=== PATIENT | male | born 1940 | race Hispanic/Latino ===

== ENCOUNTER → 2019-07-19 | Outpatient (CLI) | payer OTHER ==
[~2019-07-19] MED LIST: ASPI-1005 PO; LISI2.5T2 PO; METO25 PO; PRAV40TA3 PO; SIMV-43 PO
== END | disposition home or self-care (01) ==
LOC: RAH 10:43
PROVIDERS: ATTEND Internal Medicine Cardiovascular Disease
DX: I05.9 Rheumatic mitral valve disease, unspecified (principal); R01.1 Cardiac murmur, unspecified; R50.82 Postprocedural fever; Z95.2 Presence of prosthetic heart valve
CPT/HCPCS: 36415; 87040; 93306; 93356

== ENCOUNTER 2019-11-29 04:50 | Observation (INO) | payer OTHER ==
[2019-11-29] MEDS ORDERED: ASPIRIN 325 MG TABLET ONE (04:54)
[2019-11-29] MEDS ORDERED: NITROGLYCERIN 1GM/1 INCH PACKET TD ONE (05:08)
[2019-11-29 05:14] LABS: BASOPHILS % (AUTO) 0.5 % (0.0-5.0); EOSINOPHILS % (AUTO) 2.5 % (0.0-8.0); HEMATOCRIT 44.7 % (42-54); LYMPHOCYTES % (AUTO) 19.5 % (21.0-51.0); MEAN CORPUSCULAR HEMOGLOBIN 29.3 pg (27.0-33.0); MEAN CORPUSCULAR HGB CONC 32.7 g/dL (32.0-36.0); MEAN CORPUSCULAR VOLUME 89.6 fL (79-99); MONOCYTES % (AUTO) 9.3 % (3.0-13.0); NEUTROPHILS % (AUTO) 67.8 % (40.0-77.0); PLATELET COUNT (AUTO) 164 K/uL (130-400); RED BLOOD CELL COUNT(AUTO) 4.99 MIL/uL (4.50-6.20); RED CELL DISTRIBUTION WIDTH 13.7 % (11.0-15.5); WHITE BLOOD COUNT (AUTO) 8.5 K/uL (4.8-10.8)
[2019-11-29 05:29] LABS: CREATININE 1.3 mg/dL (0.5-1.5); POTASSIUM 3.6 mmol/L (3.5-5.1)
[2019-11-29] MEDS ORDERED: FUROSEMIDE 10 MG/ML 2ML VIAL ONE ×2 (07:08→12:14)
[2019-11-29 08:00] VITALS: BP 143/66
[2019-11-29] MEDS ORDERED: ENOXAPARIN SODIUM 80 MG/0.8 ML SQ ONE (08:52)
[2019-11-29] MEDS ORDERED: GUAIFENESIN-DM 200/20 MG 10 ML PO PRN (11:45)
[2019-11-29] MEDS ORDERED: ALPRAZOLAM 0.25 MG TABLET PO PRN (11:45)
[2019-11-29] MEDS ORDERED: CLONIDINE HCL 0.1 MG TABLET PO PRN (11:45)
[2019-11-29] MEDS ORDERED: ACETAMINOPHEN 325 MG TAB PO PRN ×2 (11:45)
[2019-11-29] MEDS ORDERED: METOPROLOL TARTRATE 1 MG/ML 5ML VIAL IV PRN (11:45)
[2019-11-29] MEDS ORDERED: HYDRALAZINE HCL 20 MG/ML VIAL IV PRN (11:45)
[2019-11-29 12:00] VITALS: BP 137/68
[2019-11-29] MEDS: FUROSEMIDE 10 MG/ML 2ML VIAL IV SCH ×2 (12:17→23:45)
--- NOTE | 2019-11-29 12:45 | NUR ---
Cardiology Consult Informed by ER director community organization [employer] that [facility] aware of consult.
[2019-11-29 16:00] VITALS: BP_SYST 137; BP_SYST 175; BP_DIAS 60; BP_DIAS 73
[2019-11-29] MEDS ORDERED: ERGOCALCIFEROL (VITAMIN D2) 50,000 UNIT CAPSULE PO ONE (16:00)
[2019-11-29] MEDS ORDERED: ERGOCALCIFEROL (VITAMIN D2) 50,000 UNIT CAPSULE ONE (16:49)
[2019-11-29] MEDS ORDERED: FAMOTIDINE 20MG TAB 20 MG TAB ONE ×2 (19:49→20:48)
[2019-11-29] MEDS ORDERED: FUROSEMIDE 10 MG/ML 4ML VIAL ONE (19:49)
[2019-11-29] MEDS ORDERED: ENOXAPARIN SODIUM 40 MG/0.4 ML SYRINGE SQ ONE (19:50)
[2019-11-29] MEDS: FAMOTIDINE 20MG TAB 20 MG TAB PO SCH (21:00)
[2019-11-30 05:53] LABS: BASOPHILS % (AUTO) 0.5 % (0.0-5.0); EOSINOPHILS % (AUTO) 2.2 % (0.0-8.0); HEMATOCRIT 44.4 % (42-54); LYMPHOCYTES % (AUTO) 17.5 % (21.0-51.0); MEAN CORPUSCULAR HEMOGLOBIN 29.9 pg (27.0-33.0); MEAN CORPUSCULAR HGB CONC 33.8 g/dL (32.0-36.0); MEAN CORPUSCULAR VOLUME 88.4 fL (79-99); MONOCYTES % (AUTO) 11.7 % (3.0-13.0); PLATELET COUNT (AUTO) 166 K/uL (130-400); RED BLOOD CELL COUNT(AUTO) 5.02 MIL/uL (4.50-6.20); RED CELL DISTRIBUTION WIDTH 13.5 % (11.0-15.5); WHITE BLOOD COUNT (AUTO) 8.1 K/uL (4.8-10.8)
[2019-11-30 06:13] LABS: HEMOGLOBIN A1C 5.9 % (4.0-6.0)
[2019-11-30 06:57] LABS: CREATININE 1.1 mg/dL (0.5-1.5); MAGNESIUM 2.2 mg/dL (1.80-2.40); POTASSIUM 3.8 mmol/L (3.5-5.1); THYROID STIMULATING HORMONE 2.46 uIU/mL (0.36-3.74)
[2019-11-30 09:00] VITALS: BP 113/44
[2019-11-30] MEDS ORDERED: SIMVASTATIN 20 MG TABLET PO SCH (09:00)
[2019-11-30] MEDS ORDERED: LISINOPRIL 2.5 MG TABLET PO SCH (09:00)
[2019-11-30] MEDS ORDERED: ZINC SULFATE 220 CAPSULE PO SCH (09:00)
[2019-11-30] MEDS ORDERED: ASCORBIC ACID 500 MG TAB PO SCH (09:00)
[2019-11-30] MEDS: ENOXAPARIN SODIUM 40 MG/0.4 ML SYRINGE SQ SCH ×3 (09:00→21:00)
[2019-11-30] MEDS ORDERED: NON-FORMULARY MEDICATION 1 EACH (Lisinopril 2.5 MG) PO SCH (09:00)
[2019-11-30] MEDS ORDERED: ASPIRIN 81MG TAB.CHEW PO SCH (09:00)
[2019-11-30] MEDS: METOPROLOL TARTRATE 25 MG TAB PO SCH ×2 (09:00→19:59)
[2019-11-30] MEDS ORDERED: FAMOTIDINE 20MG TAB 20 MG TAB ONE ×2 (09:01→22:00)
[2019-11-30] MEDS ORDERED: ASCORBIC ACID 500 MG TAB ONE ×2 (09:01→10:10)
[2019-11-30] MEDS ORDERED: ASPIRIN 81MG TAB.CHEW ONE ×2 (09:01→10:10)
[2019-11-30] MEDS ORDERED: ENOXAPARIN SODIUM 40 MG/0.4 ML SYRINGE SQ ONE ×3 (09:02→22:00)
[2019-11-30] MEDS ORDERED: SIMVASTATIN 10 MG TABLET ONE ×2 (09:02→10:10)
[2019-11-30] MEDS ORDERED: ZINC SULFATE 220 CAPSULE ONE ×2 (09:02→10:11)
[2019-11-30] MEDS ORDERED: ACETAMINOPHEN 325 MG TAB ONE (09:05)
[2019-11-30] MEDS ORDERED: LISINOPRIL 5 MG TABLET ONE (10:11)
[2019-11-30] MEDS ORDERED: METOPROLOL TARTRATE 25 MG TAB ONE (10:12)
--- NOTE | 2019-11-30 10:15 | NUR ---
STABLE, NO SOB, NO CHEST PAIN. ON ROOM AIR. REFUSED TO TAKE LISINOPRIL AND METOPROLOL BECAUSE HE DOES NOT TAKE B/P PILLS AT HOME.
--- NOTE | 2019-11-30 10:58 | NUR ---
PT STATES HE VOMITED AFTER TAKING MEDICATIONS. VS STABLE
[2019-11-30 12:08] VITALS: BP 117/48
[2019-11-30] MEDS: FUROSEMIDE 10 MG/ML 2ML VIAL IV SCH ×2 (14:00→23:47)
--- NOTE | 2019-11-30 15:12 | NUR ---
PT STABLE. NO C/O CHEST PAIN.
--- NOTE | 2019-11-30 15:37 | NUR ---
CHART CHECK COMPLETE. Pt IS A 79 Y.O. MALE ADMITTED SECONDARY TO CHEST PAIN. Pt HAS A PAST MEDICAL HISTORY SIGNIFICANT FOR CAD/MT, AORTIC VALVE REPLACEMENT, PROSTATE CANCER, PROSTATECTOMY. Pt CURRENTLY ON REGULAR TEXTURE, THIN LIQUIDS (HEART HEALTHY DIET). PLEASE REQUEST FORMAL SKILLED SPEECH/SWALLOW EVALUATION IF Pt PRESENTS WITH +S/S OF ASPIRATION. Addendum: 11/30/19 at 1541 by NAFISA PALENCIA [facility] Amended: Links added.
[2019-11-30 16:16] VITALS: BP 130/46
[2019-11-30] MEDS ORDERED: FUROSEMIDE 10 MG/ML 2ML VIAL ONE (16:53)
--- NOTE | 2019-11-30 17:29 | NUR ---
SPOKE TO [facility] FOR DC PLANNING SPOUSE TAM STATES THAT PATIENT IS INDPENDENT, ACTIVE, EMPLOYED, NO DME, DRIVES, ; DCP IS HOME, SPOUSE TO PROVIDE TRANSPORT Addendum: 11/30/19 at 1730 by YULIYA HERNANDEZ RN CM Amended: Links added.
--- NOTE | 2019-11-30 18:41 | NUR ---
DR. JOHANSEN CALLED TO HAVE UPDATES ON PT. TOLD HIM COVID WAS NEGATIVE AND VS STABLE. WILL CALL DR. KEMP AND NOTIFY HIM OF UPDATES, POSSIBLE VIJAY TOMORROW
[2019-11-30] MEDS: FAMOTIDINE 20MG TAB 20 MG TAB PO SCH (21:00)
[2019-11-30] MEDS ORDERED: FUROSEMIDE 10 MG/ML 4ML VIAL ONE (22:00)
[2019-12-01] MEDS ORDERED: ASPIRIN 81MG TAB.CHEW ONE (07:48)
[2019-12-01] MEDS ORDERED: SIMVASTATIN 10 MG TABLET ONE (07:48)
[2019-12-01] MEDS ORDERED: LISINOPRIL 5 MG TABLET ONE (07:48)
[2019-12-01] MEDS ORDERED: ASCORBIC ACID 500 MG TAB ONE (07:48)
[2019-12-01] MEDS ORDERED: FUROSEMIDE 10 MG/ML 4ML VIAL ONE (07:48)
[2019-12-01] MEDS ORDERED: ENOXAPARIN SODIUM 40 MG/0.4 ML SYRINGE SQ ONE (07:49)
[2019-12-01] MEDS ORDERED: METOPROLOL TARTRATE 25 MG TAB ONE (07:49)
[2019-12-01] MEDS ORDERED: ZINC SULFATE 220 CAPSULE ONE (07:49)
[2019-12-01] MEDS ORDERED: LISINOPRIL 2.5 MG TABLET PO SCH (09:00)
[2019-12-01] MEDS ORDERED: FENTANYL CITRATE PF 50 MCG/1 ML 2ML VIAL ONE (11:29)
[2019-12-01] MEDS ORDERED: MIDAZOLAM HCL 1 MG/ML 2ML VIAL ONE (11:29)
--- NOTE | 2019-12-01 11:30 | NUR ---
RE: COVID-19 ASSESSMENT PATIENT TESTED NEGATIVE FOR COVID-19 Addendum: 12/01/19 at 1235 by KATHYA GRUBBS RN RN Amended: Links added.
[2019-12-01] MEDS ORDERED: LIDOCAINE HCL 2% VISCOUS 15 ML UDCUP ONE (11:36)
[2019-12-01 12:12] LABS: CREATININE 1.2 mg/dL (0.5-1.5); POTASSIUM 4.8 mmol/L (3.5-5.1)
[2019-12-01 12:22] LABS: INR 1.03 (0.85-1.15); PARTIAL THROMBOPLASTIN TIME 33.3 SEC (26.3-35.5); PROTHROMBIN TIME 11.1 SEC (9.6-11.6)
--- NOTE | 2019-12-01 12:41 | NUR ---
VIJAY PROCEDURE PERFORMED BY DR Jad KEMP. PATIENT TOLERATED PROCEDURE WELL AND RECOVERED IN RADIOLOGY. NEGATIVE FOR ENDOCARDITIS. OK TO DISCHARGE HOME FROM CARDIOLOGY STANDPOINT. REPORT GIVEN TO James MCLEOD RN AND PATIENT TRANSPORTED TO ED 10 VIA [facility] AT 1240.
[2019-12-01] MEDS ORDERED: FURO20TA4 PO (13:05)
[2019-12-01] MEDS ORDERED: FUROSEMIDE 40 MG TABLET PO SCH (17:00)
== END 2019-12-01 13:38 | disposition home or self-care (01) ==
LOC: EDH 04:50 → EDHIP 07:25
PROVIDERS: ADMIT Internal Medicine; ATTEND Internal Medicine
DX: R07.89 Other chest pain (principal); Z20.828 Contact with and (suspected) exposure to other viral communicable diseases; R06.02 Shortness of breath; I25.110 Atherosclerotic heart disease of native coronary artery with unstable angina pectoris; I50.31 Acute diastolic (congestive) heart failure; I50.20 Unspecified systolic (congestive) heart failure; I25.2 Old myocardial infarction; I08.0 Rheumatic disorders of both mitral and aortic valves; E78.5 Hyperlipidemia, unspecified; Z85.46 Personal history of malignant neoplasm of prostate; Z95.2 Presence of prosthetic heart valve; Z95.1 Presence of aortocoronary bypass graft; Z79.82 Long term (current) use of aspirin; Z79.899 Other long term (current) drug therapy
CPT/HCPCS: 36415 ×3; 71045; 80048 ×3; 80061; 83036; 83735; 83880; 84443; 84484 ×3; 85025 ×2; 85378; 85610; 85730; 93005; 93313; 96372; 96374; 96376 ×2; 99291; G0378 ×55; J1650 ×6; J1940 ×6; J2250; J3010; U0003; 99152; 99153

== ENCOUNTER 2019-12-23 09:05 | Emergency (ER) | payer OTHER ==
[~2019-12-23 09:05] MED LIST changes: +FURO20TA4 PO
[2019-12-23] MEDS ORDERED: LORAZEPAM 2 MG/ML 1 ML VIAL ONE (09:51)
[2019-12-23 09:55] LABS: BASOPHILS % (AUTO) 0.2 % (0.0-5.0); EOSINOPHILS % (AUTO) 0.2 % (0.0-8.0); HEMATOCRIT 44.5 % (42-54); LYMPHOCYTES % (AUTO) 17.2 % (21.0-51.0); MEAN CORPUSCULAR HEMOGLOBIN 29.6 pg (27.0-33.0); MEAN CORPUSCULAR HGB CONC 34.6 g/dL (32.0-36.0); MEAN CORPUSCULAR VOLUME 85.4 fL (79-99); NEUTROPHILS % (AUTO) 72.9 % (40.0-77.0); PLATELET COUNT (AUTO) 126 K/uL (130-400); RED BLOOD CELL COUNT(AUTO) 5.21 MIL/uL (4.50-6.20); RED CELL DISTRIBUTION WIDTH 13.2 % (11.0-15.5); WHITE BLOOD COUNT (AUTO) 4.4 K/uL (4.8-10.8)
[2019-12-23 10:05] LABS: INR 0.99 (0.85-1.15); PARTIAL THROMBOPLASTIN TIME 36.6 SEC (26.3-35.5); PROTHROMBIN TIME 10.7 SEC (9.6-11.6)
[2019-12-23 10:13] LABS: ALBUMIN 3.8 g/dL (3.5-5.0); BILIRUBIN,TOTAL 0.8 mg/dL (0.2-1.0); CREATININE 1.2 mg/dL (0.5-1.5); POTASSIUM 4.9 mmol/L (3.5-5.1); TOTAL PROTEIN, SERUM 7.6 g/dL (6.0-8.3); TROPONIN I 0.04 ng/mL (0.00-0.06)
[2019-12-23 10:21] LABS: APPEARANCE,URINE CLEAR (CLEAR); BILIRUBIN,URINE NEGATIVE (NEGATIVE); COLOR,URINE YELLOW (YELLOW); GLUCOSE, URINE (UA) NEGATIVE (NEGATIVE); KETONES,URINE NEGATIVE (NEGATIVE); LEUKOCYTE ESTERASE ,URINE NEGATIVE (NEGATIVE); NITRATE,URINE NEGATIVE (NEGATIVE); OCCULT BLOOD,URINE TRACE-INTACT (NEGATIVE); PROTEIN,URINE 100 mg/dL (NEGATIVE)
[2019-12-23 10:32] LABS: BACTERIA,URINE Rare /HPF (None Seen); WBC,URINE None Seen /HPF (0-1)
[2019-12-23 10:33] LABS: SQUAMOUS EPITHELIAL CELL,UR Rare /HPF (0-2)
== END 2019-12-23 11:47 | disposition home or self-care (01) ==
LOC: EDH 09:05
DX: U07.1 COVID-19 (principal); I25.10 Atherosclerotic heart disease of native coronary artery without angina pectoris
CPT/HCPCS: 36415; 71045; 80053; 81001; 82550; 82728; 83605; 83874; 84145; 84484; 85025; 85378; 85610; 85730; 86900; 86901; 87040 ×2; 87088; 93005; 96374; 99285; J2060

== ENCOUNTER → 2020-01-24 | Outpatient (CLI) | payer OTHER | END | disposition home or self-care (01) | LOC: SHCH 11:13 | PROVIDERS: ATTEND Internal Medicine Cardiovascular Disease | DX: I49.8 Other specified cardiac arrhythmias (principal); Z95.2 Presence of prosthetic heart valve | CPT/HCPCS: 93306 ==

== ENCOUNTER → 2020-04-22 | Outpatient (CLI) | payer OTHER | END | disposition home or self-care (01) | LOC: RAH 08:56 | PROVIDERS: ATTEND Internal Medicine Cardiovascular Disease | DX: I42.9 Cardiomyopathy, unspecified (principal); Z95.2 Presence of prosthetic heart valve | CPT/HCPCS: 93306; 93356 ==

== ENCOUNTER 2020-07-30 05:05 | Inpatient (IN) | payer OTHER ==
[~2020-07-30] VITALS: Ht 175.3 cm; Wt 73.4 kg
[~2020-07-30 05:05] MED LIST changes: +LISI2.5T13 PO; -LISI2.5T2 PO
[2020-07-30] MEDS ORDERED: ASPIRIN 325 MG TABLET ONE (05:15)
[2020-07-30] MEDS ORDERED: NITROGLYCERIN 1GM OINT 1 INCH/1GM TD ONE (05:16)
[2020-07-30 05:26] LABS: BASOPHILS % (AUTO) 0.6 % (0.0-5.0); EOSINOPHILS % (AUTO) 4.2 % (0.0-8.0); HEMATOCRIT 40.3 % (42-54); LYMPHOCYTES % (AUTO) 22.4 % (21.0-51.0); MEAN CORPUSCULAR HEMOGLOBIN 32.1 pg (27.0-33.0); MEAN CORPUSCULAR HGB CONC 34.7 g/dL (32.0-36.0); MEAN CORPUSCULAR VOLUME 92.4 fL (79-99); MONOCYTES % (AUTO) 11.6 % (3.0-13.0); NEUTROPHILS % (AUTO) 61.1 % (40.0-77.0); PLATELET COUNT (AUTO) 138 K/uL (130-400); RED BLOOD CELL COUNT(AUTO) 4.36 MIL/uL (4.50-6.20); RED CELL DISTRIBUTION WIDTH 12.3 % (11.0-15.5); WHITE BLOOD COUNT (AUTO) 6.9 K/uL (4.8-10.8)
[2020-07-30 05:32] LABS: INR 1.12 (0.85-1.15); PROTHROMBIN TIME 12.1 SEC (9.6-11.6)
[2020-07-30 05:33] LABS: PARTIAL THROMBOPLASTIN TIME 33.8 SEC (26.3-35.5)
[2020-07-30 05:42] LABS: B-TYPE NATRIURETIC PEPTIDE 1270 pg/mL (0-100)
[2020-07-30 05:45] LABS: ALBUMIN 4.3 g/dL (3.5-5.0); BILIRUBIN,TOTAL 0.9 mg/dL (0.2-1.0); CREATININE 1.2 mg/dL (0.5-1.5); POTASSIUM 4.2 mmol/L (3.5-5.1); TOTAL PROTEIN, SERUM 7.2 g/dL (6.0-8.3)
[2020-07-30] MEDS ORDERED: FUROSEMIDE 20MG VIAL ONE ×2 (05:50→08:38)
[2020-07-30] MEDS ORDERED: AZITHROMYCIN 500MG+NS 250ML 250 ML IV ONE (06:01)
[2020-07-30] MEDS ORDERED: CEFTRIAXONE 1G VIAL ONE (06:01)
[2020-07-30 06:54] LABS: APPEARANCE,URINE Clear (CLEAR); BILIRUBIN,URINE Negative (NEGATIVE); COLOR,URINE Yellow (YELLOW); GLUCOSE, URINE (UA) Negative (NEGATIVE); KETONES,URINE Negative (NEGATIVE); LEUKOCYTE ESTERASE ,URINE Negative (NEGATIVE); NITRATE,URINE Negative (NEGATIVE); OCCULT BLOOD,URINE Negative (NEGATIVE); PROTEIN,URINE Negative (NEGATIVE); UROBILINOGEN,URINE 0.2 mg/dL (0.2-1.0)
[2020-07-30] MEDS ORDERED: POTASSIUM CHLORIDE 20MEQ/100ML 100 ML IV PRN ×2 (07:45)
[2020-07-30] MEDS ORDERED: KCL 20 MEQ ERTAB PO PRN (07:45)
[2020-07-30] MEDS ORDERED: LIDOCAINE HCL-MPF 1% 2ML VIAL IV PRN ×2 (07:45)
[2020-07-30] MEDS ORDERED: MAGNESIUM 2GM PREMIX 50ML 50 ML IV PRN (07:45)
[2020-07-30] MEDS ORDERED: POTASSIUM CHLORIDE 10% ELIXIR 20 MEQ/15 ML UDCUP PO PRN (07:45)
[2020-07-30] MEDS ORDERED: ENOXAPARIN SODIUM 40 MG/0.4 ML SYRINGE SQ ONE (08:38)
[2020-07-30] MEDS ORDERED: PANTOPRAZOLE 40 MG/VIAL ONE (08:38)
[2020-07-30] MEDS ORDERED: NON-FORMULARY MEDICATION 1 EACH (Pravastatin Sodium 40 MG) PO SCH (09:00)
[2020-07-30] MEDS: ENOXAPARIN SODIUM 40 MG/0.4 ML SYRINGE SQ SCH (09:00)
[2020-07-30] MEDS: SIMVASTATIN 20 MG TABLET PO SCH (09:00)
[2020-07-30] MEDS ORDERED: METOPROLOL TARTRATE 25 MG TAB PO SCH (09:00)
[2020-07-30] MEDS ORDERED: NON-FORMULARY MEDICATION 1 EACH (Lisinopril 2.5 MG) PO SCH (09:00)
[2020-07-30] MEDS: ASPIRIN 81MG CHEW TAB PO SCH (09:00)
[2020-07-30] MEDS: PANTOPRAZOLE 40 MG TAB DR PO SCH (09:00)
[2020-07-30] MEDS ORDERED: IOHEXOL-350 75 ML VIAL IV ONE (09:44)
[2020-07-30 20:50] VITALS: BP 157/56
[2020-07-30] MEDS: FUROSEMIDE 20MG VIAL IV SCH (21:00)
[2020-07-30] MEDS: NITROGLYCERIN 1GM OINT 1 INCH/1GM TD SCH (23:45)
[2020-07-31] VITALS (7 sets, daily range): BP systolic 123–145; BP diastolic 43–65
[2020-07-31 05:02] LABS: HEMATOCRIT 39.7 % (42-54); MEAN CORPUSCULAR HEMOGLOBIN 31.9 pg (27.0-33.0); MEAN CORPUSCULAR HGB CONC 34.3 g/dL (32.0-36.0); MEAN CORPUSCULAR VOLUME 93.2 fL (79-99); RED BLOOD CELL COUNT(AUTO) 4.26 MIL/uL (4.50-6.20); RED CELL DISTRIBUTION WIDTH 12.5 % (11.0-15.5); WHITE BLOOD COUNT (AUTO) 7.9 K/uL (4.8-10.8)
[2020-07-31 05:14] LABS: ALBUMIN 3.7 g/dL (3.5-5.0); BILIRUBIN,TOTAL 1.1 mg/dL (0.2-1.0); CREATININE 1.2 mg/dL (0.5-1.5); MAGNESIUM 2.1 mg/dL (1.80-2.40); POTASSIUM 4.1 mmol/L (3.5-5.1); TOTAL PROTEIN, SERUM 6.9 g/dL (6.0-8.3)
[2020-07-31] MEDS ORDERED: AEC81 PO (05:31)
[2020-07-31] MEDS ORDERED: CARV6.25 PO (05:32)
[2020-07-31] MEDS ORDERED: ATOR20TA65 PO (05:33)
[2020-07-31] MEDS ORDERED: FURO40TA5 PO (05:34)
[2020-07-31] MEDS ORDERED: SACU1TAB PO (05:35)
[2020-07-31] MEDS: NITROGLYCERIN 1GM OINT 1 INCH/1GM TD SCH (05:38)
[2020-07-31] MEDS: FUROSEMIDE 20MG VIAL IV SCH ×2 (08:54→20:45)
[2020-07-31] MEDS: ENOXAPARIN SODIUM 40 MG/0.4 ML SYRINGE SQ SCH (08:55)
[2020-07-31] MEDS: ASPIRIN 81MG CHEW TAB PO SCH (08:55)
[2020-07-31] MEDS: PANTOPRAZOLE 40 MG TAB DR PO SCH (08:55)
[2020-07-31] MEDS: SIMVASTATIN 20 MG TABLET PO SCH (08:55)
[2020-07-31] MEDS ORDERED: FUROSEMIDE 20MG VIAL IV SCH (09:00)
[2020-07-31] MEDS: CARVEDILOL 6.25 MG TABLET PO SCH ×2 (10:15→20:44)
[2020-07-31] MEDS ORDERED: PHARMACY COMMUNICATION MISC SCH (10:15)
[2020-07-31] MEDS: VALSARTAN PO SCH ×2 (10:52→20:29)
[2020-07-31] MEDS: SACUBITRIL PO SCH ×2 (10:52→20:29)
[2020-08-01] VITALS (9 sets, daily range): BP systolic 95–149; BP diastolic 40–57
[2020-08-01 05:36] LABS: HEMATOCRIT 36.2 % (42-54); MEAN CORPUSCULAR HEMOGLOBIN 31.9 pg (27.0-33.0); MEAN CORPUSCULAR HGB CONC 34.8 g/dL (32.0-36.0); MEAN CORPUSCULAR VOLUME 91.6 fL (79-99); RED BLOOD CELL COUNT(AUTO) 3.95 MIL/uL (4.50-6.20); RED CELL DISTRIBUTION WIDTH 12.2 % (11.0-15.5); WHITE BLOOD COUNT (AUTO) 7.5 K/uL (4.8-10.8)
[2020-08-01 05:46] LABS: INR 1.17 (0.85-1.15); PROTHROMBIN TIME 12.6 SEC (9.6-11.6)
[2020-08-01 05:48] LABS: PARTIAL THROMBOPLASTIN TIME 35.6 SEC (26.3-35.5)
[2020-08-01 06:00] LABS: CREATININE 1.4 mg/dL (0.5-1.5); POTASSIUM 3.8 mmol/L (3.5-5.1)
[2020-08-01] MEDS ORDERED: HEPARIN 10,000 UNIT/10ML (1,000 UNIT/ML) VIAL ONE (07:11)
[2020-08-01] MEDS ORDERED: BIVALIRUDIN 250 MG/VIAL IV ONE (07:11)
[2020-08-01] MEDS ORDERED: NITROGLYCERIN 2 MG VIAL IV ONE (07:12)
[2020-08-01] MEDS ORDERED: IOHEXOL 350 MG/ML 100ML INFUS..BTL IV ONE (07:12)
[2020-08-01] MEDS ORDERED: IOHEXOL-350 50ML VIAL IV ONE (07:12)
[2020-08-01] MEDS ORDERED: LIDOCAINE HCL 400MG/20ML VIAL ONE (07:13)
[2020-08-01] MEDS ORDERED: MIDAZOLAM HCL 1 MG/ML 2ML VIAL ONE (07:13)
[2020-08-01] MEDS ORDERED: FENTANYL CITRATE PF 50 MCG/1 ML 2ML VIAL ONE (07:13)
[2020-08-01] MEDS: FUROSEMIDE 20MG VIAL IV SCH (07:44)
[2020-08-01] MEDS: ASPIRIN 81MG CHEW TAB PO SCH (07:44)
[2020-08-01] MEDS: SACUBITRIL PO SCH ×2 (07:45→19:51)
[2020-08-01] MEDS: VALSARTAN PO SCH ×2 (07:45→19:51)
[2020-08-01] MEDS: SIMVASTATIN 20 MG TABLET PO SCH (07:45)
[2020-08-01] MEDS: PANTOPRAZOLE 40 MG TAB DR PO SCH (07:45)
[2020-08-01] MEDS: ENOXAPARIN SODIUM 40 MG/0.4 ML SYRINGE SQ SCH (07:45)
[2020-08-01] MEDS: CARVEDILOL 6.25 MG TABLET PO SCH ×2 (07:45→19:50)
[2020-08-01] MEDS ORDERED: ASPIRIN 325MG EC TAB PO ONE (08:38)
[2020-08-01] MEDS ORDERED: CLOPIDOGREL 300MG TAB ONE (08:39)
[2020-08-01] MEDS ORDERED: IOHEXOL-350 75 ML VIAL IV ONE (08:52)
[2020-08-01] MEDS ORDERED: ONDANSETRON 4MG INJ IVP PRN (09:15)
[2020-08-01] MEDS ORDERED: 0.9%NACL 1000ML 1,000 ML IV SCH (09:15)
[2020-08-02 00:01] VITALS: BP 137/55
[2020-08-02 04:10] VITALS: BP 136/57
[2020-08-02 05:16] LABS: HEMATOCRIT 39.3 % (42-54); MEAN CORPUSCULAR HEMOGLOBIN 31.2 pg (27.0-33.0); MEAN CORPUSCULAR HGB CONC 33.8 g/dL (32.0-36.0); MEAN CORPUSCULAR VOLUME 92.3 fL (79-99); RED BLOOD CELL COUNT(AUTO) 4.26 MIL/uL (4.50-6.20); RED CELL DISTRIBUTION WIDTH 12.3 % (11.0-15.5); WHITE BLOOD COUNT (AUTO) 7.2 K/uL (4.8-10.8)
[2020-08-02 05:17] LABS: CREATININE 1.1 mg/dL (0.5-1.5); MAGNESIUM 2.1 mg/dL (1.80-2.40); POTASSIUM 4.3 mmol/L (3.5-5.1)
[2020-08-02 08:12] VITALS: BP 133/55
[2020-08-02] MEDS ORDERED: FURO40TA5 PO (08:52)
[2020-08-02] MEDS ORDERED: CLOP75TA14 PO (08:52)
[2020-08-02] MEDS ORDERED: POTA-10 PO (08:52)
[2020-08-02] MEDS ORDERED: FUROSEMIDE 40 MG TABLET PO SCH (09:00)
[2020-08-02] MEDS ORDERED: CLOPIDOGREL 75MG TAB PO SCH (09:00)
[2020-08-02] MEDS: ASPIRIN 81MG CHEW TAB PO SCH (09:08)
[2020-08-02] MEDS: CARVEDILOL 6.25 MG TABLET PO SCH (09:08)
[2020-08-02] MEDS: VALSARTAN PO SCH (09:09)
[2020-08-02] MEDS: PANTOPRAZOLE 40 MG TAB DR PO SCH (09:09)
[2020-08-02] MEDS: SIMVASTATIN 20 MG TABLET PO SCH (09:09)
[2020-08-02] MEDS: SACUBITRIL PO SCH (09:09)
[2020-08-02 12:12] VITALS: BP 147/66
== END 2020-08-02 12:16 | disposition home or self-care (01) | DRG 246 ==
LOC: EDH 05:05 → EDHIP 05:34 → OBSVTOIN 05:34 → 4CH 20:43
PROVIDERS: ADMIT Internal Medicine; ATTEND Internal Medicine
PROC: 4A023N8 Measurement of Cardiac Sampling and Pressure, Bilateral, Percutaneous Approach (ICD-10-PCS; principal; 2020-08-01)
PROC: 027034Z Dilation of Coronary Artery, One Artery with Drug-eluting Intraluminal Device, Percutaneous Approach (ICD-10-PCS; 2020-08-01)
PROC: B2111ZZ Fluoroscopy of Multiple Coronary Arteries using Low Osmolar Contrast (ICD-10-PCS; 2020-08-01)
PROC: B2151ZZ Fluoroscopy of Left Heart using Low Osmolar Contrast (ICD-10-PCS; 2020-08-01)
PROC: B2121ZZ Fluoroscopy of Single Coronary Artery Bypass Graft using Low Osmolar Contrast (ICD-10-PCS; 2020-08-01)
PROC: B3101ZZ Fluoroscopy of Thoracic Aorta using Low Osmolar Contrast (ICD-10-PCS; 2020-08-01)
PROC: B41F1ZZ Fluoroscopy of Right Lower Extremity Arteries using Low Osmolar Contrast (ICD-10-PCS; 2020-08-01)
DX: I25.110 Atherosclerotic heart disease of native coronary artery with unstable angina pectoris (principal); I50.43 Acute on chronic combined systolic (congestive) and diastolic (congestive) heart failure; E78.5 Hyperlipidemia, unspecified; I42.0 Dilated cardiomyopathy; H53.8 Other visual disturbances; R74.8 Abnormal levels of other serum enzymes; Z86.16 Personal history of COVID-19; I08.0 Rheumatic disorders of both mitral and aortic valves; Z20.822 Contact with and (suspected) exposure to COVID-19; Z85.46 Personal history of malignant neoplasm of prostate; Z95.1 Presence of aortocoronary bypass graft; Z95.3 Presence of xenogenic heart valve; Z79.82 Long term (current) use of aspirin; Z79.02 Long term (current) use of antithrombotics/antiplatelets; I25.2 Old myocardial infarction; Z79.899 Other long term (current) drug therapy
CPT/HCPCS: 36415; 71045; 71275; 76705; 80048; 80053; 80061; 81003; 82550; 83690; 83735; 83880; 84145; 84484; 85025; 85027; 85378; 85610; 85730; 87040; 87426; 87804; 93005; 93306; 93356; 93461; 93567; 99156; 99157; C1760; C1769; C1894; C9113; C9604; G0378; J0456; J0583; J0696; J1644; J1650; J1940; J2250; J3010; J3490; Q9967; U0003

== ENCOUNTER → 2020-09-24 | Outpatient (CLI) | payer OTHER ==
[~2020-09-24] MED LIST changes: +AEC81 PO; -ASPI-1005 PO; +ATOR20TA65 PO; +CARV6.25 PO; +CLOP75TA14 PO; -FURO20TA4 PO; +FURO40TA5 PO; -LISI2.5T13 PO; -METO25 PO; +POTA-9 PO; -PRAV40TA3 PO; +SACU1TAB PO; -SIMV-43 PO
== END | disposition home or self-care (01) ==
LOC: RAH 09:23
PROVIDERS: ATTEND Internal Medicine Cardiovascular Disease
DX: Z95.2 Presence of prosthetic heart valve (principal)
CPT/HCPCS: 93306; 93356

== ENCOUNTER → 2020-12-11 | Outpatient (CLI) | payer OTHER | END | disposition home or self-care (01) | LOC: SHCH 12:31 | PROVIDERS: ATTEND Internal Medicine Cardiovascular Disease | DX: I35.0 Nonrheumatic aortic (valve) stenosis (principal); Z95.2 Presence of prosthetic heart valve | CPT/HCPCS: 93306; 93356 ==

== ENCOUNTER → 2021-04-07 | Outpatient (CLI) | payer OTHER ==
[~2021-04-07] MED LIST changes: +POTA-10 PO; -POTA-9 PO
== END | disposition home or self-care (01) ==
LOC: SHCH 08:02
PROVIDERS: ATTEND Internal Medicine Cardiovascular Disease
DX: I87.2 Venous insufficiency (chronic) (peripheral) (principal)
CPT/HCPCS: 93971

== ENCOUNTER → 2021-11-18 | Outpatient (CLI) | payer OTHER ==
[~2021-11-18] MED LIST changes: +ACET-2079 PO; +ATOR10 PO; -ATOR20TA65 PO; -CARV6.25 PO; -CLOP75TA14 PO; +CLOP75TA32 PO; -FURO40TA5 PO; -POTA-10 PO; -SACU1TAB PO; +SUPER C COMPLEX PO
== END | disposition home or self-care (01) ==
LOC: SHCH 08:28
PROVIDERS: ATTEND Internal Medicine Cardiovascular Disease
DX: I34.0 Nonrheumatic mitral (valve) insufficiency (principal); I42.0 Dilated cardiomyopathy; I51.7 Cardiomegaly; I25.10 Atherosclerotic heart disease of native coronary artery without angina pectoris; I87.2 Venous insufficiency (chronic) (peripheral); E78.5 Hyperlipidemia, unspecified; Q87.19 Other congenital malformation syndromes predominantly associated with short stature; Z98.890 Other specified postprocedural states; Z95.3 Presence of xenogenic heart valve; Z95.1 Presence of aortocoronary bypass graft
CPT/HCPCS: 93306

== ENCOUNTER → 2023-06-25 | Outpatient (CLI) | payer OTHER | END | disposition home or self-care (01) | LOC: SHCH 07:34 | PROVIDERS: ATTEND Internal Medicine Cardiovascular Disease | DX: I34.0 Nonrheumatic mitral (valve) insufficiency (principal); I51.7 Cardiomegaly; Z95.4 Presence of other heart-valve replacement | CPT/HCPCS: 93306 ==

== ENCOUNTER → 2023-09-01 | Outpatient (CLI) | payer OTHER | END | disposition home or self-care (01) | LOC: SHCH 07:34 | PROVIDERS: ATTEND Internal Medicine Cardiovascular Disease | DX: I70.203 Unspecified atherosclerosis of native arteries of extremities, bilateral legs (principal); R10.30 Lower abdominal pain, unspecified | CPT/HCPCS: 93925 ==

== ENCOUNTER → 2024-08-29 | Outpatient (CLI) | payer OTHER ==
[2024-08-29 12:44] LABS: CREATININE 0.9 mg/dL (0.5-1.3)
== END | disposition home or self-care (01) ==
LOC: LAB 08:21
PROVIDERS: ATTEND Internal Medicine Cardiovascular Disease
DX: I73.9 Peripheral vascular disease, unspecified (principal)
CPT/HCPCS: 36415; 80048

== ENCOUNTER → 2024-10-16 | Outpatient (CLI) | payer OTHER ==
[2024-10-16 10:48] LABS: CREATININE 0.8 mg/dL (0.5-1.3); POTASSIUM 5.2 mmol/L (3.5-5.1)
== END | disposition home or self-care (01) ==
LOC: LAB 09:11
PROVIDERS: ATTEND Internal Medicine Cardiovascular Disease
DX: I73.9 Peripheral vascular disease, unspecified (principal)
CPT/HCPCS: 36415; 80048

== ENCOUNTER → 2024-10-23 | Outpatient (CLI) | payer OTHER ==
[~2024-10-23] MED LIST changes: +IOHEXOL 350 MG/ML 100ML INFUS..BTL IV ONE; +IOHEXOL-350 50ML VIAL IV ONE
--- NOTE | 2024-10-23 10:20 | HMCIMG ---
Exam Type: CT angiogram abdomen and pelvis and lower extremities run-off with contrast Exam Type: CT ANGIO ABD AORTA W RUNOFF Clinical Information: PAD Comparison: None Technique: Routine helical scanning at 5mm collimation through the abdomen and pelvis after contrast administration. In addition, sagittal and coronary formations of the abdomen pelvis and surface rendering three-dimensional reconstructions of the abdominal aorta and the bilateral lower extremity arterial system were performed. Findings: The vascular examination is abnormal. There is atheromatous plaque of the aorta and main branches throughout. There is no aortic occlusion. Circulation is otherwise preserved down to the popliteal arteries bilaterally. Both trifurcations are patent. However, the runoff is severely limited, with occlusion of the 3 vessels on the left side at or above the ankle level. On the right side, the anterior tibial artery and interosseous artery are occluded at or above the ankle level and a very diseased distal posterior tibial artery feeds the plantar arches. There is no aortic aneurysm. There is no occlusion. There is no dissection. There is no extravasation to suggest laceration or rupture. No evidence of nephro or ureterolithiasis is found. No hydronephrosis or ureteral dilatation is seen. The visualized portion of the stomach is unremarkable. It shows no wall thickening. No gross ulceration is seen. It is not overly distended. There are no surrounding inflammatory changes. No wall lesions are identified to suggest cancer. The visualized portion of the spleen is unremarkable. It is not enlarged. The pancreas shows normal anatomy. It is not fatty replaced. It shows no lesions. The pancreatic duct is not dilated. The gallbladder is unremarkable. It shows no cholelithiasis. The gallbladder wall is normal in thickness. There is no pericholecystic fluid. The is no acute or chronic inflammation noted. The adrenal glands are unremarkable. There is no enlargement. No lesions are noted. The visualized portion of the liver is unremarkable. It shows no focal masses. The appendix is unremarkable. It shows no evidence of inflammation. No appendicolith is seen. The small bowel is unremarkable. There is no evidence of dilatation to suggest obstruction. No evidence of adynamic ileus is seen. There is no small bowel wall thickening to suggest enteritis. The colon is unremarkable. The urinary bladder is unremarkable. There is no wall thickening to suggest tumor or inflammation. There are no intraluminal calculi. There are no diverticula. There is no evidence of chronic bladder outlet obstruction. There is no evidence of urinary bladder distention to suggest urinary retention. The other pelvic structures are unremarkable. The bony and vascular structures are unremarkable for the patient's age. IMPRESSION: Significant peripheral vascular disease as noted above. This study was performed using dose reduction techniques to include automated exposure control and/or adjustment of the mA and/or kV according to patient size.
== END | disposition home or self-care (01) ==
LOC: RAH 07:31
PROVIDERS: ATTEND Internal Medicine Cardiovascular Disease
DX: I73.9 Peripheral vascular disease, unspecified (principal); I70.0 Atherosclerosis of aorta
CPT/HCPCS: 75635; Q9967 ×2